=== PATIENT | female | born 1960 | race Caucasian/White ===

== ENCOUNTER 2025-03-09 13:16 | Emergency (ER) | payer MEDICAID, SELFPAY ==
[2025-03-09 13:16] VITALS: BP 128/76; PULSE 84; RESP 14; TEMP 36.6; O2SAT 98; BMI 24.7
--- NOTE | 2025-03-09 15:01 | EDS_ITS ---
HPI History of Present Illness Chief Complaint: Bite Detail of Chief Complaint: IV antibiotics for sepsis Informant: patient Onset/Context/Timing Onset: Days (Symptoms started Saturday after she discontinued the antibiotic she was prescribed) Context: Sudden Onset Timing: Continuous Quality: Fatigue, weight loss Location: Lesion hand dorsal surface between the 1st and 2nd metacarpal Current Severity: Patient is insistent she has sepsis Maximum Severity: Symptoms started after antibiotics were discontinued Worsened by: Completion of antibiotic course Relieved by: Nothing Associated Symptoms Associated Symptoms: Patient does have cough and states she has a smoker's cough Narrative Narrative: Patient is 64-year-old woman. She has been seen at the dermatology office. Nurse practitioner called before her arrival. She spoke with Dr. Thompson Larios. Dr. Larios informed them not to promise the patient anything. Patient was under the impression an IV would be established and she would receive IV antibiotics. She states the person that saw her stated that she needed IV antibiotics. Patient has no constitutional symptoms other than fatigue and she has had some weight loss. During the H&P she was noted to have a cough. The cough is moist. When I inquired about it her, it was I have a smoker's cough . Further questions were asked and her response was I have not smoked in 35 years . Patient then inquired if a hand surgeon would be seeing her. At which point I told her that she has granulation tissue. In my opinion there is no evidence infection. If it was infected I would gladly incise it however since it is not I am not credentialed or have privileges to remove a possible growth or granulation tissue from an infection that it was due to a cat bite January 08. Patient states she has completed 3 courses of antibiotics and hours after completing the antibiotic she has current symptoms and this is due to sepsis. Prior similar symptoms: Yes Recent Illness/Hospitalization: Yes [facility] Medical History (Updated 03/09/25 @ 16:[address] Vinh Monterroso MD) Infected bite wound of hand Home Medications ?Medication ?Instructions ?Recorded ?Last Taken ?Type esomeprazole magnesium 20 mg 20 mg PO QDAY 01/26/25 Un known History granules delayed release for susp Allergy/AdvReac Type Severity Reaction Status Date / Time acetaminophen (From Vicodin) Allergy Unknown Other Verified 03/09/25 13:16 carbamazepine (From Tegretol) Allergy Unknown Other Verified 03/09/25 13:16 codeine Allergy Unknown headache Verified 03/09/25 13:16 hydrocodone (From Vicodin) Allergy Unknown Other Verified 03/09/25 13:16 meperidine (From Demerol) Allergy Unknown Other Verified 03/09/25 13:16 morphine Allergy Unknown Itching Verified 03/09/25 13:16 promethazine (From Phenergan) Allergy Unknown emesis Verified 03/09/25 13:16 Social History (Updated 03/09/25 @ 15:[address] Vinh Monterroso MD) Smoking Status: Former smoker second hand exposure: No alcohol intake: current substance use type: marijuana ROS ROS ED Constitutional Constitutional ED: Denies chills, fever(s), subjective, sweats or weight loss Cardiovascular Cardiovascular: Denies chest pain or palpitations Respiratory/Chest Respiratory/Chest: Reports cough; Denies dyspnea or dyspnea on exertion Gastrointestinal Gastrointestinal: Denies abdominal pain, nausea or vomiting Musculoskeletal Musculoskeletal: Denies arthralgias or myalgias Integumentary Reports other Details: Lesion dorsum of hand, left Neurologic Neurologic: Denies paresthesias or weakness Hematologic/Lymphatic Hematologic/Lymphatic: Reports systems reviewed and no addt'l complaints, except as documented EXAM Physical Exam Const Vital Signs: 03/09/25 13:16 03/09/25 15:16 Temperature 98 F Temperature Source Temporal Pulse Rate 84 64 Respiratory Rate 14 18 Blood Pressure 128/76 H 130/76 H Blood Pressure Mean 93 94 Pulse Ox 98 98 Oxygen Delivery Method Room Air Room Air Positive well nourished and well developed General Appearance ED: well developed and NAD; Negative for cyanotic or diaphoretic HEENT HEENT Narrative: HEENT is grossly unremarkable. Eyes PERRL and EOMs intact bilaterally General Eye ED: Negative for scleral icterus Resp normal respiratory effort and clear to auscultation bilaterally Cardio regular rate, regular rhythm, S1 normal heart sound, S2 normal heart sound and no murmurs Extremity Negative for normal to inspection Extremity Narrative: There is a small granulation tissue 3 to 4 mm size dorsum of the hand between the 1st and 2nd metacarpal left hand. There is no warmth, induration, fluctuance, lymphangitis or epitrochlear or axillary lymphadenopathy. Where the lesion is noted there is no concern for involvement of the extensor tendons. Neuro oriented x3, CN's II-XII intact bilaterally and no sensory deficits noted Sensorium / Orientation: alert Psych Attitude: agitated Skin Skin Narrative: Small granulation tissue dorsum of hand. MDM MDM MDM Narrative Medical decision making narrative: Patient was informed of my professional opinion she does not have infection. She was informed this is the reason IV antibiotics were not ordered. She then stated she needed IV antibiotics. And I informed her that in my professional opinion she does not need it. She was told if the person that saw our thought she needed antibiotic she could give them to her orally. She then insisted that she was told that it needed to be IV. 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 I did inform her that this is known as area under the curve. I informed her my concern is the weight loss and the cough and the fact that she was a smoker. I was informed by the department nurse general manager road production, director of emergency services, that she wanted another doctor. I informed her that I told her politely that a hand surgeon would not be down to see her. I informed her that the person that saw her should not have made any promises. Patient at this time is agreeable for blood work. History & Record Review Additional record(s) reviewed:: Prior outpatient record (GI outpatient referral November 2024 or constipation.) Lab Data Attestation: I reviewed the patient's lab results. Lab results narrative: CBC is normal. Competence metabolic panel slight elevation of glucose at 111. Alkaline phos is slightly elevated at 141. Labs: Laboratory Results - last 24 hr 03/09/25 15:06 WBC 8.1 RBC 4.53 Hgb 13.9 Hct 40.8 MCV 90.1 MCH 30.7 MCHC 34.1 RDW Std Deviation 44.3 H RDW Coeff of Carey 13.4 Plt Count 255 MPV 10.2 Immature Gran % (Auto) 0.200 Neut % (Auto) 58.2 Lymph % (Auto) 32.2 Elmore % (Auto) 7.3 Eos % (Auto) 1.4 Baso % (Auto) 0.7 Absolute Neuts (auto) 4.7 Absolute Lymphs (auto) 2.61 Nucleated RBC % 0 Sodium 140 Potassium 4.1 Chloride 104 Carbon Dioxide 23.3 Anion Gap 13 BUN 11 Creatinine 0.83 Estim Creat Clear Calc 61.62 Est GFR (MDRD) Non-Af 78 BUN/Creatinine Ratio 13.4 Glucose 111 H Calcium 9.2 Total Bilirubin 0.58 AST 27 ALT 20 Alkaline Phosphatase 141 H Total Protein 7.8 Albumin 4.6 Globulin 3.1 Albumin/Globulin Ratio 1.5 Management Discussion w/another healthcare provider: Other (Nurse practitioner graft who saw the patient for a total body exam called in. She informed that I had paged her. I informed her I did not page her. I told her that the director of the emergency department overheard her call the office. She informed me that the p atient wanted the lesion on her payne) Treatment and Re-Evaluation :: In light of my earlier interaction will have charge nurse go back with me. Will discharge patient at that time. She will be informed of her laboratory results and my discussion with nurse practitioner Emiliano. Discharge Plan Triage Chief Complaint: Bite ED Provider: Vinh Monterroso Dx/Rx/DC Orders Clinical Impression: Skin lesion of hand, Fatigue, Unintentional weight loss Instructions: ED Weakness Uncertain Cause Prescriptions: No Action esomeprazole magnesium [address] for susp in packet 20 mg PO QDAY Primary Care Provider: Tremayne Davies Referrals: Tremayne Davies MD [Primary Care Provider] - 1 Week Activity Restrictions/Additional Instructions: If your symptoms persist I recommend you follow-up with your doctor for further workup that can be done as an outpatient. Print Language: Vietnamese Disposition Disposition: Home, Self Care
[2025-03-09 15:16] VITALS: BP 130/76; PULSE 64; RESP 18; O2SAT 98
[2025-03-09 15:22] LABS: Absolute Lymphocyte Count 2.61 X10^3/uL (0.83-4.51); Absolute Neutrophil Count 4.7 X10^3/uL (2.0-7.7); Basophil# 0.06 X10^3/uL; Basophil% 0.7 % (0-1); Eosinophil# 0.11 X10^3/uL; Eosinophils% 1.4 % (0-5); Hematocrit 40.8 % (37-47); Hemoglobin 13.9 g/dL (12.0-15.0); Lymphocyte # 2.61 X10^3/ul (0.83-4.51); Lymphocyte % 32.2 % (19-41); Mean Corp Hgb Conc 34.1 g/dL (32-36); Mean Corpuscular Hgb 30.7 pg (27.0-32.0); Mean Corpuscular Volume 90.1 fL (81-99); Mean Platelet Vol. 10.2 fl (6.2-12.0); Monocyte# 0.59 X10^3/uL; Monocyte% 7.3 % (0-10); NRBC Flagged by Analyzer 0 % (0-5); Neutrophil # 4.72 X10^3/uL (2.7-7.7); Neutrophil % 58.2 % (47-70); Platelet Count 255 K/mm3 (150-450); RBC Distribution Width CV 13.4 % (11.6-14.6); RBC Distribution Width SD 44.3 fl (35.1-43.9); Red Blood Count 4.53 M/mm3 (4.2-5.4); White Blood Count 8.1 K/mm3 (4.4-11.0)
[2025-03-09 16:01] LABS: ALB/GLOB Ratio 1.5 RATIO (0.9-2.4); AST(SGOT) 27 U/L (<=31); Alanine Aminotransfer ALT/SGPT 20 U/L (<=34); Albumin, Serum 4.6 g/dL (3.4-4.8); Alkaline Phosphatase 141 U/L (35-104); Anion Gap 13 (5-15); BUN 11 mg/dL (4-19); BUN/Creat Ratio 13.4 RATIO (10-20); Calcium,Total 9.2 mg/dL (7.6-11.0); Carbon Dioxide 23.3 mmol/L (21.0-32.0); Chloride 104 mmol/L (98-108); Creatinine, Serum 0.83 mg/dL (0.70-1.20); EST Glomerular Filtration Rate 78 (>60); Estimated Creatinine Clearance 61.62 ml/min (50-250); Globulin 3.1 g/dL (2.2-4.2); Glucose 111 mg/dL (70-99); Potassium 4.1 mmol/L (3.3-5.1); Protein, Total 7.8 g/dL (5.9-8.4); Sodium Level 140 mmol/L (133-145); Total Bilirubin 0.58 mg/dL (0.00-1.30)
--- NOTE | 2025-03-09 16:26 | ED.RN ---
THIS RN BACK WITH DR CHO TO DISCUSS LAB RESULTS. DR CHO CALM AND DISCUSSED FINDINGS WITH PT. THIS RN SUPPORTED PT. AFTER DR CHO LEFT THIS RN DISCUSSED OTHER CONCERNS FOR FOLLOW UP INCLUDING FATIGUE,WEAKNESS,WEIGHT LOSS. PT AGREES TO FOLLOW UP. PT PROVIDED WITH THIS RN NAME, PHYSICIAN NAME,CABIN CLEANER AND PT ADVOCATE
== END 2025-03-09 16:32 | disposition home or self-care (01) ==
PROVIDERS: Emergency Provider Emergency Medicine; PCP Family Medicine; Visit Provider Emergency Medicine
DX: L98.9 Disorder of the skin and subcutaneous tissue, unspecified (principal); Z87.891 Personal history of nicotine dependence; R63.4 Abnormal weight loss; R53.83 Other fatigue
CPT/HCPCS: 80053; 85025; 99282

== ENCOUNTER 2025-04-19 09:22 | Day surgery (SDC) | payer MEDICAID, SELFPAY ==
--- NOTE | 2025-04-15 14:12 | PAT.ANE_ITS ---
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 N,V Cholinesterase deficiency No 04/15/25 10:33 You/Your Family Experience No 04/15/25 10:33 fever (hyperthermia) with Relationship Recent Exposure to Contagious Disease Does patient have nerve No 04/15/25 10:33 stimulator Patient instructed to have device shut off --Does patient have Pacemaker or ICD? When Was Last Pacemaker Check QUESTION #4 FULL TEXT: You/Your Family Experience fever (hyperthermia) with Anesthesia Last Oral Intake Last Oral intake: Last Oral Intake NPO since Meds taken in AM with sips of water? Meds patient instructed to take am of surgery PONV PONV - sleeve wheel maker: PONV - sleeve wheel maker Female Yes 04/15/25 10:33 HX of Motion Sickness No 04/15/25 10:33 HX of N/V After Surgery Yes 04/15/25 10:33 Non-Smoker Yes 04/15/25 10:33 Duration of Surgery greater No 04/15/25 10:33 than 60 minutes Number of Risk Factors 3 04/15/25 10:33 PONV Score Moderate Risk 04/15/25 10:33 Respiratory Assessment Respiratory Assessment - sleeve wheel maker: Respiratory Tract Infection Hx - sleeve wheel maker Hx Respiratory Tract Infection No 04/15/25 10:33 STOP Sleep Apnea STOP Sleep Apnea - sleeve wheel maker: STOP Sleep Apnea - sleeve wheel maker Hx Hypertension No 04/15/25 10:33 Hx Sleep Apnea No 04/15/25 10:33 CPAP BIPAP Do you snore loudly (louder No 04/15/25 10:33 than talking or can be heard Do you often feel tired/ No 04/15/25 10:33 fatigued/ sleepy during daytime? Has anyone observed you stop No 04/15/25 10:33 breathing during sleep? STOP Results Negative 04/15/25 10:33 QUESTION #5 FULL TEXT : Do you snore loudly (louder than talking or can be heard through closed doors)? 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 Specify any problems Hx of Preganancy in last 3 No 04/15/25 10:33 Months Nurse Filling Out Transfusion DSCHRIBER 04/15/25 10:33 & Questions: Date: 04/15/25 04/15/25 10:33 Time: 10:37 04/15/25 10:33 Patient unable to answer at this time (ie. confused, unrespo /Reproduction History /Reproductive History - sleeve wheel maker: /Reproductive Hx- sleeve wheel maker Hx Now No 04/15/25 10:33 Gestational Age (in weeks): EDC: Hx Hx Para Hx Section SAB No 04/15/25 10:33 PFS Medical History (Updated 04/15/25 @ 10:51 by Cecilia Valles) Stool color black Wears glasses Cancer Post-menopausal Anxiety Alcohol use Marijuana use Diabetes Arthritis Migraine headache Loss of consciousness Injury of head and neck History of hiatal hernia Gastric reflux Former smoker Cardiology follow-up encounter History of stress test History of Mohs micrographic surgery for skin cancer Hx of ectopic Infected bite wound of hand Home Medications ?Medication ?Instructions ?Recorded ?Last Taken ?Type esomeprazole magnesium 20 mg 20 mg PO QDAY 01/26/25 Un known History granules delayed release for susp Allergy/AdvReac Type Severity Reaction Status Date / Time acetaminophen (From Vicodin) Allergy Unknown Other Verified 04/15/25 10:33 carbamazepine (From Tegretol) Allergy Unknown Other Verified 04/15/25 10:33 codeine Allergy Unknown headache Verified 04/15/25 10:33 hydrocodone (From Vicodin) Allergy Unknown Other Verified 04/15/25 10:33 meperidine (From Demerol) Allergy Unknown Other Verified 04/15/25 10:33 morphine Allergy Unknown Itching Verified 04/15/25 10:33 promethazine (From Phenergan) Allergy Unknown emesis Verified 04/15/25 10:33 Surgical History (Updated 04/15/25 @ 10:48 by Cecilia Valles) History of esophagogastroduodenoscopy (EGD) Hx of colonoscopy Hx of bladder repair surgery Hx laparoscopic cholecystectomy Hx of hysterectomy Hx of tubal ligation Hx of exploratory laparotomy Hx of tonsillectomy Social History (Updated 03/09/25 @ 15:[address] Vinh Monterroso MD) Smoking Status: Former smoker second hand exposure: No alcohol intake: current substance use type: marijuana Audit: Pertinent Findings Pertinent Findings Echo (EF%) pertinent findings: June 06, 2022. EF of 60%. No aortic stenosis is noted. Consult pertinent findings: January 02, 2023. Dr. Turner. 1. Palpitations/dyspnea on exertion-event monitor as below. Echo as above. Cardiac CTA results below. 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 Symptoms are improving. No further cardiac workup indicated. Additional pertinent findings: Cardiac CTA?July 2022. No evidence of obstructive coronary artery disease. Event monitor?June 21, 2022. Largely normal with very short runs of atrial tachycardia. Symptoms appear to correlate with sinus rhythm. Recommendation Anesthesia Recommendation Anesthesia recommendation: OPTIMIZED for anesthesia
[2025-04-19] VITALS (9 sets, daily range): BP systolic 100–126; BP diastolic 53–88; PULSE 68–88; RESP 16; TEMP 36.6–37.2; O2SAT 97–99; BMI 24.0
--- NOTE | 2025-04-19 09:26 | PRE.ANES_ITS ---
ASA Classification* ASA Classification ASA Classification: 2 Assessment & Plan Anesthesia* Anesthesia Assessment Anesthesia Assessment: Discussed sedation and/or anesthesia options, risks, benefits, and alternatives with patient/parents/legal guardian/POA. Questions invited. The patient/parents/legal guardian/POA seems to understand and agrees to proceed with anesthesia plan. Reviewed the physical assessment, medical history, allergy history and patient home medications list prior to surgery/procedure/anesthetic and documented any changes. Performed airway and anesthesia risk assessments. Anesthesia Type Anesthesia Type: MAC Anesthesia Focused Assessment* Airway Assessment Mouth opens: >3 cm Mallampati Score: II Labs Anesthesia Preop lab: CBC WBC 8.1 K/mm3 (4.4-11.0) 03/09/25 15:06 03/09/25 RBC 4.53 M/mm3 (4.2-5.4) 03/09/25 15:06 03/09/25 Hgb 13.9 g/dL (12.0-15.0) 03/09/25 15:06 03/09/25 Hct 40.8 % (37-47) 03/09/25 15:06 03/09/25 Plt Count 255 K/mm3 (150-450) 03/09/25 15:06 03/09/25 CHEMISTRY Potassium 4.1 mmol/L (3.3-5.1) 03/09/25 15:06 03/09/25 Sodium 140 mmol/L (133-145) 03/09/25 15:06 03/09/25 BUN 11 mg/dL (4-19) 03/09/25 15:06 03/09/25 Creatinine 0.83 mg/dL (0.70-1.20) 03/09/25 15:06 03/09/25 Glucose 111 mg/dL (70-99) H 03/09/25 15:06 03/09/25 COAG Pre-Assessment Diagnosis/Proposed Procedure Planned Operative Procedure(s): EGD/CSCOPE Anesthesia History Anesthesia History - paleontological helper: Anesthesia History - paleontological helper Hx Hospitalization No 04/15/25 10:33 Any Problems With Anesthesia Yes: ALITTLE GOES A LONG 04/15/25 10:33 WAY. N,V Cholinesterase deficiency No 04/15/25 10:33 You/Your Family Experience No 04/15/25 10:33 fever (hyperthermia) with Relationship Recent Exposure to Contagious Disease Does patient have nerve No 04/15/25 10:33 stimulator Patient instructed to have device shut off --Does patient have Pacemaker or ICD? When Was Last Pacemaker Check QUESTION #4 FULL TEXT: You/Your Family Experience fever (hyperthermia) with Anesthesia Last Oral Intake Last Oral intake: Last Oral Intake NPO since Meds taken in AM with sips of water? Meds patient instructed to take am of surgery PONV PONV - paleontological helper: PONV - paleontological helper Female Yes 04/15/25 10:33 HX of Motion Sickness No 04/15/25 10:33 HX of N/V After Surgery Yes 04/15/25 10:33 Non-Smoker Yes 04/15/25 10:33 Duration of Surgery greater No 04/15/25 10:33 than 60 minutes Number of Risk Factors 3 04/15/25 10:33 PONV Score Moderate Risk 04/15/25 10:33 Respiratory Assessment Respiratory Assessment - paleontological helper: Respiratory Tract Infection Hx - paleontological helper Hx Respiratory Tract Infection No 04/15/25 10:33 STOP Sleep Apnea STOP Sleep Apnea - paleontological helper: STOP Sleep Apnea - paleontological helper Hx Hypertension No 04/15/25 10:33 Hx Sleep Apnea No 04/15/25 10:33 CPAP BIPAP Do you snore loudly (louder No 04/15/25 10:33 than talking or can be heard Do you often feel tired/ No 04/15/25 10:33 fatigued/ sleepy during daytime? Has anyone observed you stop No 04/15/25 10:33 breathing during sleep? STOP Results Negative 04/15/25 10:33 QUESTION #5 FULL TEXT : Do you snore loudly (louder than talking or can be heard through closed doors)? 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 Specify any problems Hx of Preganancy in last 3 No 04/15/25 10:33 Months Nurse Filling Out Transfusion DSCHRIBER 04/15/25 10:33 & Questions: Date: 04/15/25 04/15/25 10:33 Time: 10:37 04/15/25 10:33 Patient unable to answer at this time (ie. confused, unrespo /Reproduction History /Reproductive History - paleontological helper: /Reproductive Hx- paleontological helper Hx Now No 04/15/25 10:33 Gestational Age (in weeks): EDC: Hx Hx Para Hx Section SAB No 04/15/25 10:33 PFSH Medical History Stool color black Wears glasses Cancer Post-menopausal Anxiety Alcohol use Marijuana use Diabetes Arthritis Migraine headache Loss of consciousness Injury of head and neck History of hiatal hernia Gastric reflux Former smoker Cardiology follow-up encounter History of stress test History of Mohs micrographic surgery for skin cancer Hx of ectopic Infected bite wound of hand Home Medications ?Medication ?Instructions ?Recorded ?Last Taken ?Type esomeprazole magnesium 20 mg 20 mg PO QDAY 01/26/25 Un known History granules delayed release for susp Allergy/AdvReac Type Severity Reaction Status Date / Time acetaminophen (From Vicodin) Allergy Unknown Other Verified 04/15/25 10:33 carbamazepine (From Tegretol) Allergy Unknown Other Verified 04/15/25 10:33 codeine Allergy Unknown headache Verified 04/15/25 10:33 hydrocodone (From Vicodin) Allergy Unknown Other Verified 04/15/25 10:33 meperidine (From Demerol) Allergy Unknown Other Verified 04/15/25 10:33 morphine Allergy Unknown Itching Verified 04/15/25 10:33 promethazine (From Phenergan) Allergy Unknown emesis Verified 04/15/25 10:33 Surgical History History of esophagogastroduodenoscopy (EGD) Hx of colonoscopy Hx of bladder repair surgery Hx laparoscopic cholecystectomy Hx of hysterectomy Hx of tubal ligation Hx of exploratory laparotomy Hx of tonsillectomy Social History Smoking Status: Former smoker second hand exposure: No alcohol intake: current substance use type: marijuana Review of Systems (Anesthesia) ROS Narrative System reviewed and no additional complaints, except as documented.
[2025-04-19] MEDS: Lactated Ringers 1,000 ML 15 ML IV (10:10)
--- NOTE | 2025-04-19 10:25 | PCM.HP.STD ---
HPI - General General Date of Admission: 04/19/25 Date of Service: 04/19/25 Chief Complaint: GERD, constipation and screening colonoscopy HPI Narrative YANICK SONG, is a 64 F who presents for GERD, constipation and screening colonoscopy. BGI established 1.30.25 with daily heartburn and constipation. Last colonoscopy and EGD in 2014 with normal findings. *Continue PPI, start fiber supplement OV 3.18.25 Pt continues to have intermittent RUQ pain and heartburn. She is having less nighttime episodes of pain. She continues esomeprazole 20 mg daily. She is no longer having issues with constipation. [facility] Medical History Stool color black Wears glasses Cancer Post-menopausal Anxiety Alcohol use Marijuana use Diabetes Arthritis Migraine headache Loss of consciousness Injury of head and neck History of hiatal hernia Gastric reflux Former smoker Cardiology follow-up encounter History of stress test History of Mohs micrographic surgery for skin cancer Hx of ectopic Infected bite wound of hand Home Medications ?Medication ?Instructions ?Recorded ?Last Taken ?Type esomeprazole magnesium 20 mg 20 mg PO QDAY 01/26/25 04/19/25 History granules delayed release for susp Allergy/AdvReac Type Severity Reaction Status Date / Time lidocaine Allergy Severe Other Verified 04/19/25 10:01 acetaminophen (From Vicodin) Allergy Unknown Other Verified 04/15/25 10:33 carbamazepine (From Tegretol) Allergy Unknown Other Verified 04/15/25 10:33 codeine Allergy Unknown headache Verified 04/15/25 10:33 hydrocodone (From Vicodin) Allergy Unknown Other Verified 04/15/25 10:33 meperidine (From Demerol) Allergy Unknown Other Verified 04/15/25 10:33 morphine Allergy Unknown Itching Verified 04/15/25 10:33 promethazine (From Phenergan) Allergy Unknown emesis Verified 04/15/25 10:33 Surgical History History of esophagogastroduodenoscopy (EGD) Hx of colonoscopy Hx of bladder repair surgery Hx laparoscopic cholecystectomy Hx of hysterectomy Hx of tubal ligation Hx of exploratory laparotomy Hx of tonsillectomy Social History Smoking Status: Former smoker second hand exposure: No alcohol intake: current substance use type: marijuana ROS Constitutional Constitutional: Denies fatigue, fever(s), poor appetite, weight gain or weight loss Gastrointestinal Gastrointestinal: Denies belching, bloating, change in bowel habits, change in stool character, chewing difficulty, coffee ground emesis, constipation, cramping, diarrhea, dyspepsia, dysphagia, early satiety, excessive flatus, fecal incontinence, heartburn, hematemesis, hematochezia, hemorrhoids, loose stools, melena, nausea, odynophagia, rectal bleeding, tenesmus, vomiting or weight changes Vital Signs Vital Signs Vital Signs: 04/19/25 10:02 04/19/25 10:02 Temperature 98.7 F Temperature Source Temporal Pulse Rate 88 Respiratory Rate 16 Respiratory Pattern Normal Blood Pressure 126/78 H Blood Pressure Mean 94 Blood Pressure Source Monitor Blood Pressure Position Semi-Fowlers Blood Pressure Location Right Arm Pulse Ox 99 Oxygen Delivery Method Room Air Weight Weight: 144 lb 2.917 oz Body Mass Index (BMI) 24.0 Physical Exam Const alert, oriented x3, no apparent distress and healthy appearing General Appearance: cooperative GI normal to inspection, nondistended, normoactive bowel sounds, soft to palpation, non-tender and non-distended Percussion: normal to percussion Rectal Exam: deferred Assessment & Plan Assessment/Plan (1) Abdominal pain: (2) GERD (gastroesophageal reflux disease): PLAN: Assessment and Plan Assessment and Plan (1) Constipation: Status: Acute Plan: This is a 64 yo female pt here today for f/u regarding GERD, abdominal pain and constipation. Pt continues to have intermittent issues with RUQ pain. 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 I offered dicyclomine for pain relief but she declined. Pt continues to have some heartburn while on PPI. Her last EGD and colonoscopy was in 2014. She is due for screening colonoscopy and will undergo EGD at the same time. Constipation is resolved with increasing dietary fiber. She is agreeable to plan. -Continue PPI -Colonoscopy and EGD -Continue high fiber diet (2) GERD (gastroesophageal reflux disease): Status: Acute (3) Abdominal pain: Status: Acute Medications: Discontinued sucralfate Discontinued Reason: Pt no longer taking 1 g PO QAC 90 tabs 0RF
--- NOTE | 2025-04-19 10:30 | EGD_PTH ---
PATIENT: YANICK NEGRETE LOC: EN U#:[id number] AGE/SX: 64/F ROOM: RE04/19/[address]: Dr. Justo Stauffer DO : 1960 BED: DIS: 04/19/2025 SPEC #: [id number] RECD: 04/19/25 13:29 STATUS: KING REJuanjo #: [id number] COURTNEY: 04/19/25 10:[address]: Justo Stauffer DEPT: SURGICAL PATHOLOGY RECD BY: Emilio Payton ENTERED: 04/19/25 14:12 SP TYPE: EGD BIOPSY OT DR: Dr. Tremayne Davies MD Tissues: A - Duodenum, NOS B - Gastric mucous membrane C - Ileum, NOS D - COLON BIOPSY Procedures: Immunohistochemical Stains Surgery Specimen Level IV HEADER OPERATION: Colonoscopy with biopsy, EGD with biopsy PRE-OP DIAGNOSIS: Abdominal pain, GERD TISSUE SUBMITTED: A- Duodenum biopsy, B- Gastric antrum biopsy, C- Terminal ileum biopsy,D- Random colon biopsy MICROSCOPIC DIAGNOSIS A. Small intestine, duodenum, biopsies: * Benign duodenal mucosa without active inflammation or architectural distortion B. Stomach, antrum: * Oxyntic mucosa with slight chronic inflammation * An immunohistochemical stain for Helicobacter pylori is negative C. Small intestine, terminal ileum: * Benign without active inflammation or architectural distortion D. Large intestine, random: * Benign colonic mucosa without active inflammation or architectural distortion MICROSCOPIC DESCRIPTION Slides are reviewed. All matched controls reacted appropriately. These tests were developed and their performance characteristics determined by [facility]. They may not have been cleared or approved by the U.S. Food and Drug Administration. The FDA has determined that such clearance or approval is not necessary. The above immunohistochemical/dualISH markers are reviewed by the Pathologist. GROSS DESCRIPTION A. Received in fixative is one container labeled with the patient's name and designated Duodenum biopsy. The specimen consists of two irregular fragments of light smallwood soft tissue that in aggregate measure 0.8 x 0.4 x 0.2 cm. The specimen is totally submitted in one cassette. B. Received in fixative is one container labeled with the patient's name and designated Gastric antrum biopsy. The specimen consists of two irregular fragments of light smallwood soft tissue that in aggregate measure 0.7 x 0.5 x 0.2 cm. The specimen is totally submitted in one cassette. C. Received in fixative is one container labeled with the patient's name and designated Terminal ileum biopsy. The specimen consists of one irregular fragment of light smallwood soft tissue that measures 1 x 0.4 x 0.2 cm. The specimen is totally submitted in one cassette. D. Received in fixative is one container labeled with the patient's name and designated Random colon biopsy. The specimen consists of multiple irregular fragments of light smallwood soft tissue that in aggregate measure 1.5 x 0.5 x 0.2 cm. The specimen is totally submitted in one cassette. MS/mr 04/19/2025 CPT:[id number]
--- NOTE | 2025-04-19 11:14 | PCM.POST.ANE ---
Anesthesia: Postop Eval I Current Vital Signs Temperature: 97.8 F Pulse Rate: 72 Blood Pressure: 112/78 Respiratory Rate: 16 Pulse Ox: 98 Oxygen Delivery Method: Room Air Assessment Airway patent: Yes Spontaneous unlabored respirations: Yes Mental status: Awake and Calm nausea: No Vomiting: No Anesthesia Complication: No Fluid Hydration Crystalloid volume administer (ml): 700 Total IV fluid infused: 700 Progress Note Anesthesia document: Postop Eval 1 completed: Yes
--- NOTE | 2025-04-19 11:15 | OP.EGD_ITS ---
Patient Name: Angelica Solano Procedure Date: 04/19/2025 10:28 AM Date of : 1960 Age: 64 Procedure: Upper GI endoscopy Indications: Epigastric abdominal pain, Functional Dyspepsia Providers: Justo Stauffer DO Medicines: Monitored Anesthesia Care Patient Profile: This is a 64 year old female. Refer to note in patient chart for documentation of history and physical. Patient has symptoms of acute epigastric abdominal pain, chronic dyspepsia, chronic heartburn and chronic nausea. Complications: No immediate complications. Procedure: Pre-Anesthesia Assessment: - Prior to the procedure, a History and Physical was performed, and patient medications and allergies were reviewed. The patient is competent. The risks and benefits of the procedure and the sedation options and risks were discussed with the patient. All questions were answered and informed consent was obtained. Patient identification and proposed procedure were verified by the physician in the pre-procedure area. Mental Status Examination: alert and oriented. Airway Examination: normal oropharyngeal airway and neck mobility. Respiratory Examination: clear to auscultation. CV Examination: normal. Prophylactic Antibiotics: The patient does not require prophylactic antibiotics. Prior Anticoagulants: The patient has taken no anticoagulant or antiplatelet agents except for NSAID medication. ASA Grade Assessment: II - A patient with mild systemic disease. After reviewing the risks and benefits, the patient was deemed in satisfactory condition to undergo the procedure. The anesthesia plan was to use monitored anesthesia care (MAC). Immediately prior to administration of medications, the patient was re-assessed for adequacy to receive sedatives. The heart rate, respiratory rate, oxygen saturations, blood pressure, adequacy of pulmonary ventilation, and response to care were monitored throughout the procedure. The physical status of the patient was re-assessed after the procedure. After obtaining informed consent, the endoscope was passed under direct vision. Throughout the procedure, the patient's blood pressure, pulse, and oxygen saturations were monitored continuously. The Colonoscope was introduced through the mouth, and advanced to the third part of the duodenum. Small bowel enteroscopy was deemed necessary. The upper GI endoscopy was accomplished without difficulty. The patient tolerated the procedure well. Scope In: 10:40:54 AM Scope Out: 10:44:02 AM Total Procedure Duration Time 0 hours 3 minutes 8 seconds Findings: The examined esophagus was normal. Patchy mildly erythematous mucosa without bleeding was found in the gastric body. Biopsies were taken with a cold forceps for histology. Biopsies were taken with a cold forceps for Helicobacter pylori testing. Verification of patient identification for the specimen was done. Estimated blood loss was minimal. Patchy mildly erythematous mucosa without active bleeding and with no stigmata of bleeding was found in the entire duodenum. Impression: - Normal esophagus. - Erythematous mucosa in the gastric body. Biopsied. - Erythematous duodenopathy. Recommendation: - Discharge patient to home. - Resume previous diet. - Continue present medications. - Await pathology results. Procedure Code(s): --- Professional --- 65977, Small intestinal endoscopy, enteroscopy beyond second portion of duodenum, not including ileum; with biopsy, single or multiple CPT copyright 2021 [employer]. All rights reserved. The codes documented in this report are preliminary and upon medical billing coder review may be revised to meet current compliance requirements. Justo Stauffer DO 04/19/2025 11:15:25 AM This report has been signed electronically. Number of Addenda: 0 Note Initiated On: 04/19/2025 10:28 AM
--- NOTE | 2025-04-19 11:16 | OP.CCLET_ITS ---
04/19/2025 Tremayne Davies Re : Upper GI endoscopy procedure for Angelica Solano Deashavonne Davies This procedure was performed on Saturday, April 19, 2025. My impressions and recommendations are as follows: Impressions : - Normal esophagus. - Erythematous mucosa in the gastric body. Biopsied. - Erythematous duodenopathy. Recommendations : - Discharge patient to home. - Resume previous diet. - Continue present medications. - Await pathology results. My findings are described in the full procedure note, which is enclosed. If I can be of further assistance, please feel free to contact me at . Sincerely, Justo Stauffer, 04/19/2025 11:15:25 AM This report has been signed electronically.
--- NOTE | 2025-04-19 11:19 | OP.COLON_ITS ---
Patient Name: Angelica Solano Procedure Date: 04/19/2025 10:44 AM Date of : 1960 Age: 64 Procedure: Colonoscopy Indications: Generalized abdominal pain, Clinically significant diarrhea of unexplained origin Providers: Justo Stauffer DO Medicines: Monitored Anesthesia Care Patient Profile: This is a 64 year old female. Refer to note in patient chart for documentation of history and physical. Patient has symptoms of acute epigastric abdominal pain, chronic dyspepsia, chronic heartburn and chronic nausea. Last Colonoscopy: several years ago. Complications: No immediate complications. Procedure: Pre-Anesthesia Assessment: - Prior to the procedure, a History and Physical was performed, and patient medications and allergies were reviewed. The patient is competent. The risks and benefits of the procedure and the sedation options and risks were discussed with the patient. All questions were answered and informed consent was obtained. Patient identification and proposed procedure were verified by the physician in the pre-procedure area. Mental Status Examination: alert and oriented. Airway Examination: normal oropharyngeal airway and neck mobility. Respiratory Examination: clear to auscultation. CV Examination: normal. Prophylactic Antibiotics: The patient does not require prophylactic antibiotics. Prior Anticoagulants: The patient has taken no anticoagulant or antiplatelet agents except for NSAID medication. ASA Grade Assessment: II - A patient with mild systemic disease. After reviewing the risks and benefits, the patient was deemed in satisfactory condition to undergo the procedure. The anesthesia plan was to use monitored anesthesia care (MAC). Immediately prior to administration of medications, the patient was re-assessed for adequacy to receive sedatives. The heart rate, respiratory rate, oxygen saturations, blood pressure, adequacy of pulmonary ventilation, and response to care were monitored throughout the procedure. The physical status of the patient was re-assessed after the procedure. After I obtained informed consent, the scope was passed under direct vision. Throughout the procedure, the patient's blood pressure, pulse, and oxygen saturations were monitored continuously. The Colonoscope was introduced through the anus and advanced to the terminal ileum. Scope In: 10:46:03 AM Scope Withdrawal Time 0 hours 13 minutes 0 seconds Scope Out: 11:04:04 AM Total Procedure Duration Time 0 hours 18 minutes 1 second Findings: The perianal and digital rectal examinations were normal. A few small-mouthed diverticula were found in the sigmoid colon. An area of mildly congested mucosa was found in the recto-sigmoid colon. Biopsies were taken with a cold forceps for histology. Verification of patient identification for the specimen was done. Estimated blood loss was minimal. The terminal ileum appeared normal. Biopsies were taken with a cold forceps for histology. Verification of patient identification for the specimen was done. Estimated blood loss was minimal. The exam was otherwise without abnormality on direct and retroflexion views. Impression: - Diverticulosis in the sigmoid colon. - Congested mucosa in the recto-sigmoid colon. Biopsied. - The examined portion of the ileum was normal. Biopsied. - The examination was otherwise normal on direct and retroflexion views. Recommendation: - Discharge patient to home. - Resume previous diet. - Continue present medications. - Await pathology results. - Repeat colonoscopy in 5 years for surveillance. Procedure Code(s): --- Professional --- 26046, Colonoscopy, flexible; with biopsy, single or multiple CPT copyright 2021 [employer]. All rights reserved. The codes documented in this report are preliminary and upon rice field worker review may be revised to meet current compliance requirements. Justo Stauffer DO 04/19/2025 11:19:32 AM This report has been signed electronically. Number of Addenda: 0 Note Initiated On: 04/19/2025 10:44 AM
--- NOTE | 2025-04-19 11:20 | OP.CCLET_ITS ---
04/19/2025 Tremayne Davies Re : Colonoscopy procedure for Angelica Davies This procedure was performed on Saturday, April 19, 2025. My impressions and recommendations are as follows: Impressions : - Diverticulosis in the sigmoid colon. - Congested mucosa in the recto-sigmoid colon. Biopsied. - The examined portion of the ileum was normal. Biopsied. - The examination was otherwise normal on direct and retroflexion views. Recommendations : - Discharge patient to home. - Resume previous diet. - Continue present medications. - Await pathology results. - Repeat colonoscopy in 5 years for surveillance. My findings are described in the full procedure note, which is enclosed. If I can be of further assistance, please feel free to contact me at . Sincerely, Justo Stauffer, 04/19/2025 11:19:32 AM This report has been signed electronically.
--- NOTE | 2025-04-19 11:40 | PCM.POSTANE2 ---
Anesthesia Postop Eval I Sum Postop Eval Completion status Anesthesia document: Postop Eval 1 completed: Yes Anesthesia Postop Eval I Summary Anesthesia Postop Eval I Summary: Anesthesia Postop Eval I: Assessment Summary Airway patent Yes 04/19/25 11:16 [email or web address] Spontaneous unlabored Yes 04/19/25 11:16 [email or web address] respirations Mental status Awake,Calm 04/19/25 11:16 [email or web address] nausea No 04/19/25 11:16 [email or web address] Vomiting No 04/19/25 11:16 [email or web address] Anesthesia Postop Eval I: Fluid Summary Crystalloid volume administer 700 04/19/25 11:16 [email or web address] (ml) Colloids volume administered ( ml) Blood Product volume administered (ml) Total IV fluid infused 700 04/19/25 11:16 [email or web address] Anesthesia Postop Eval I: Summary Notes Anesthesia Complication No 04/19/25 11:16 [email or web address] Anesthesia Complication Comment: Post-operative progress note Anesthesia: Postop Eval II Evaluation Mental status: Awake Pain Level: 0 nausea: No Vomiting: No
== END 2025-04-19 12:05 | disposition home or self-care (01) ==
LOC: EN 09:25 → AC 09:27
PROVIDERS: PCP Family Medicine; Referring Provider Family Medicine; Visit Provider Internal Medicine Gastroenterology
PROC: 0DJD8ZZ Inspection of Lower Intestinal Tract, Via Natural or Artificial Opening Endoscopic (ICD-10-PCS; CPT 45378; principal; 2025-04-19 10:25)
DX: Z12.11 Encounter for screening for malignant neoplasm of colon (principal); E11.9 Type 2 diabetes mellitus without complications; K21.9 Gastro-esophageal reflux disease without esophagitis; Z87.891 Personal history of nicotine dependence; K57.30 Diverticulosis of large intestine without perforation or abscess without bleeding; K59.00 Constipation, unspecified; Z79.899 Other long term (current) drug therapy; Z85.828 Personal history of other malignant neoplasm of skin; Z90.49 Acquired absence of other specified parts of digestive tract; Z90.710 Acquired absence of both cervix and uterus; Z98.51 Tubal ligation status; R10.11 Right upper quadrant pain; K31.89 Other diseases of stomach and duodenum; K63.89 Other specified diseases of intestine; K29.50 Unspecified chronic gastritis without bleeding
CPT/HCPCS: 45380; 43239; 88305; 88342; J2405